=== PATIENT | female | born 1955 | race Caucasian/White ===

== ENCOUNTER 2023-05-19 14:33 | Outpatient (OUT) | payer MEDICARE, MEDICAID, SELFPAY | END 2023-05-19 14:34 | disposition home or self-care (01) | LOC: PST 14:33 | PROVIDERS: PCP Family Medicine; Visit Provider Surgery | DX: Z01.818 Encounter for other preprocedural examination (principal); Z12.11 Encounter for screening for malignant neoplasm of colon; K21.9 Gastro-esophageal reflux disease without esophagitis; R10.13 Epigastric pain ==

== ENCOUNTER 2023-05-24 09:38 | Day surgery (SDC) | payer MEDICARE, SELFPAY ==
[2023-05-24 10:00] VITALS: BP 137/94; PULSE 74; RESP 18; TEMP 36.2; O2SAT 100; BMI 31.4
[2023-05-24] MEDS: LACTATED RINGER'S SOLUTION 1,000 ML 50 ML IV (10:15)
[2023-05-24 11:09] VITALS: BP 113/61; PULSE 65; RESP 16; O2SAT 95
--- NOTE | 2023-05-24 11:11 | PM.GSPRC ---
Date of procedure: 05/24/23 Indications for Procedure: epigastric/chest pain Screening for cancer Pre-op diagnosis: epigastric/chest pain Post-op diagnosis: other (esophagitis rule out Billingsley's esophagus; diverticulosis; descending colon polyp less than 5 mm) Procedure: EGD with biopsy antrum and distal esophagus Colonoscopy with fulguration 5 mm polyp descending colon Findings: esophagitis rule out Billingsley's Diverticulosis 5 mm polyp descending colon Anesthesia: [facility] [place] Procedure Summary: The patient was taken to the operating suite and placed in the left lateral position after being given IV conscious sedation as above. the Olympus video EGD scope was advanced under direct visualization to the posterior pharynx esophagus stomach through the pylorus into the 1st 2nd 3rd and 4th portions of the duodenum which were normal. The scope was returned to the stomach retroflexed on itself looking the GE junction. There were no polyps tumors or ulcers seen. Biopsies were taken of the stomach to rule out H. pylori and gastritis. The scope was returned to the distal esophagus where there is no evidence of a handle hernia but there is mild esophagitis and possibly early Billingsley's. Biopsies were taken of this area. Hemostasis was maintained. The scope was then withdrawn from the rest of the esophagus which was completely normal. Rectal digital exam normal. No external? hemorrhoids noted. The Olympus video colonoscope was then advanced under direct visualization into the rectum, sigmoid colon, descending colon, transverse colon, and ascending colon to the ileocecal valve which was visualized.?appendiceal lumen was visualized. Prep was well enough to visualize polyps greater than 5 mm. There were no tumors seen. there are multiple diverticuli especially in the descending and sigmoid colon areas which were large. Polyp was encountered in the descending colon and pulverized less than 5 mm. Fulguration was complete.The scope was then slowly withdrawn with air being desufflated as the scope was withdrawn and again finding no abnormalities. There were no internal hemorrhoids or external hemorrhoids noted. The patient tolerated the procedure well and went to the recovery area in satisfactory condition. Would recommend patient return in five years for repeat colonoscopy due to colon polyp. If epigastric and/chest pain continues would recommend further studies because I see no evidence of a hiatal hernia at this time. Further studies could be esophageal fluoroscopy evaluate motility and/or chest x-ray or CT of chest since patient is a smoker to rule out lung cancer. Estimated blood loss (mL): 1 Specimens: esophageal and antral biopsies Complications: No Pathology: other (esophageal and antral biopsies) Condition: stable Disposition: PACU
[2023-05-24 11:29] VITALS: BP 114/61; PULSE 62; RESP 16; O2SAT 96
[2023-05-26 11:10] LABS: H Pylori Tissue, Urease Negative
== END 2023-05-24 11:50 | disposition home or self-care (01) ==
PROVIDERS: PCP Family Medicine; Visit Provider Surgery
PROC: (CPT 43239; principal; 2023-05-24 11:40)
DX: Z12.11 Encounter for screening for malignant neoplasm of colon (principal); K63.5 Polyp of colon; K22.70 Barrett's esophagus without dysplasia; K57.30 Diverticulosis of large intestine without perforation or abscess without bleeding; K29.50 Unspecified chronic gastritis without bleeding; R10.13 Epigastric pain; R07.9 Chest pain, unspecified; J44.9 Chronic obstructive pulmonary disease, unspecified; K21.9 Gastro-esophageal reflux disease without esophagitis; E78.5 Hyperlipidemia, unspecified; I10 Essential (primary) hypertension; E07.9 Disorder of thyroid, unspecified; H81.09 Meniere's disease, unspecified ear; Z90.49 Acquired absence of other specified parts of digestive tract; Z96.643 Presence of artificial hip joint, bilateral; Z79.899 Other long term (current) drug therapy; Z79.890 Hormone replacement therapy; F17.210 Nicotine dependence, cigarettes, uncomplicated
CPT/HCPCS: 43239; 45388; 87077; 88305; 88313; 88342; 99999; J2704